=== PATIENT | female | born 1960 | race Caucasian/White ===

== ENCOUNTER 2021-01-06 14:12 | Outpatient (CLI) | payer BC | END 2021-01-06 14:13 | disposition home or self-care (01) | LOC: CSHMAMMO 14:12 | PROVIDERS: ATTEND Obstetrics & Gynecology | DX: Z53.9 Procedure and treatment not carried out, unspecified reason (principal) ==

== ENCOUNTER 2021-03-10 14:02 | Outpatient (CLI) | payer BC | END 2021-03-10 14:03 | disposition home or self-care (01) | LOC: CSHMAMMO 14:02 | PROVIDERS: ATTEND Obstetrics & Gynecology | DX: Z12.31 Encounter for screening mammogram for malignant neoplasm of breast (principal); Z98.890 Other specified postprocedural states | CPT/HCPCS: 77063; 77067 ==

== ENCOUNTER 2025-04-03 14:18 | Outpatient (CLI) | payer MEDICARE | END 2025-04-03 14:19 | disposition home or self-care (01) | LOC: CSHMAMMO 14:18 | PROVIDERS: ATTEND Obstetrics & Gynecology | DX: Z12.31 Encounter for screening mammogram for malignant neoplasm of breast (principal); Z98.890 Other specified postprocedural states | CPT/HCPCS: 77063; 77067 ==